=== PATIENT | female | born 1985 | race Caucasian/White ===

== ENCOUNTER 2017-05-11 10:32 | Emergency (ER) | payer SELFPAY ==
[~2017-05-11] VITALS: Ht 162.6 cm; Wt 90.0 kg
[~2017-05-11 10:32] MED LIST: IBUP600 PO; PERC5TAB12 PO; PERI8.6T PO; PREN0.01 PO
[2017-05-11 11:09] VITALS: BP 148/98; PULSE 98; RESP 18; TEMP 98.6; O2SAT 98
--- NOTE | 2017-05-11 11:25 | PD ---
HPI Chief Complaint: General Weakness Time Seen by Provider: 11:25 Travel History International Travel<30 days: No Contact w/Intl Traveler<30days: No Traveled to known affect area: No History of Present Illness HPI 32-year-old female came to the emergency room brought by her with history of feeling weak and dizzy for past 2 days. An says that she feels like her blood sugar is going down. She starts seeing spots in front of her eyes with tunnel vision and ringing in her ears. She started getting very shaky and sweaty. At this point if she eats something she feels better. She has checked her blood sugar to her [id number]'s glucometer and the lowest sugar has been is in the 80s. However she has checked after she has eaten something. Currently she does not appear to be in any significant distress. Vital signs are stable. Patient says that she is trying to do dieting to lose weight. She used to eat a lot of sugar and carbohydrates before now she is trying to cut off everything. No history of vomiting or diarrhea. No history of fever or chills. She said there could be a chance she could be . [facility] Past Medical History Narrative Medical List of her past medical, surgical, social and family history is reviewed from the nursing note. Medical other: Yes ("HYPOGLYCEMIA") Influenza Vaccination: No ?: Not Past Surgical History Section: Yes Social History Alcohol Use: Yes ("RARELY") Tobacco Use: No Substance Use: No Allergies-Medications (Allergen,Severity, Reaction): Coded Allergies: No Known Allergies (Unverified Adverse Reaction, Unknown, 05/11/17) Comments No known drug allergies. Reported Meds & Prescriptions Reported Meds & Active Scripts Active No Active Prescriptions or Reported Medications Narrative Medication List of her home medications reviewed from the nursing note. Review of Systems Except as stated in HPI: all other systems reviewed are Neg Physical Exam Narrative GENERAL: Awake, alert, no obvious distress SKIN: Focused skin assessment warm/dry. HEAD: Atraumatic. Normocephalic. EYES: Pupils equal and round. No scleral icterus. No injection or drainage. ENT: No nasal bleeding or discharge. Mucous membranes pink and moist. NECK: Trachea midline. No JVD. CARDIOVASCULAR: Regular rate and rhythm. No murmur appreciated. RESPIRATORY: No accessory muscle use. Clear to auscultation. Breath sounds equal bilaterally. GASTROINTESTINAL: Abdomen soft, non-tender, nondistended. Hepatic and splenic margins not palpable. MUSCULOSKELETAL: No obvious deformities. No clubbing. No cyanosis. No edema. NEUROLOGICAL: Awake and alert. No obvious cranial nerve deficits. Motor grossly within normal limits. Normal speech. PSYCHIATRIC: Appropriate mood and affect; insight and judgment normal. Data Data Last Documented VS Vital Signs Date Time Temp Pulse Resp B/P (MAP) Pulse Ox O2 Delivery O2 Flow Rate FiO2 05/11/17 12:00 89 18 140/78 (98) 98 Room Air 05/11/17 11:09 98.6 Orders Orders Complete Blood Count With Diff (05/11/17 11:32) Basic Metabolic Panel (Bmp) (05/11/17 11:32) Urinalysis - C+S If Indicated (05/11/17 11:32) Ed Urine Pregnancytest Poc (05/11/17 11:32) Ed Discharge Order (05/11/17 12:27) Labs Laboratory Tests Test 05/11/17 11:40 05/11/17 11:43 Urine Collection Type CLEAN CATCH Urine Color STRAW Urine Turbidity SLIGHT Urine pH 6.0 Urine Specific [place] 1.010 Urine Protein NEG mg/dL Urine Glucose (UA) NEG mg/dL Urine Ketones NEG mg/dL Urine Occult Blood TRACE Urine Nitrite NEG Urine Bilirubin NEG Urine Leukocyte Esterase NEG Urine RBC 0-3 /hpf Urine Squamous Epithelial Cells 0-5 /hpf Urine Amorphous Sediment FEW Microscopic Urinalysis Comment CULT NOT INDICATED Urine Collection Time 1140 White Blood Count 8.0 TH/MM3 Red Blood Count 5.20 MIL/MM3 Hemoglobin 14.2 GM/DL Hematocrit 43.8 % Mean Corpuscular Volume 84.2 FL Mean Corpuscular Hemoglobin 27.3 PG Mean Corpuscular Hemoglobin Concent 32.4 % Red Cell Distribution Width 12.0 % Platelet Count 267 TH/MM3 Mean Platelet Volume 8.7 FL Neutrophils (%) (Auto) 81.3 % Lymphocytes (%) (Auto) 13.8 % Monocytes (%) (Auto) 3.8 % Eosinophils (%) (Auto) 0.2 % Basophils (%) (Auto) 0.9 % Neutrophils # (Auto) 6.5 TH/MM3 Lymphocytes # (Auto) 1.1 TH/MM3 Monocytes # (Auto) 0.3 TH/MM3 Eosinophils # (Auto) 0.0 TH/MM3 Basophils # (Auto) 0.1 TH/MM3 CBC Comment DIFF FINAL Differential Comment Blood Urea Nitrogen 15 MG/DL Creatinine 0.86 MG/DL Random Glucose 128 MG/DL Calcium Level 8.6 MG/DL Sodium Level 139 MEQ/L Potassium Level 3.9 MEQ/L Chloride Level 105 MEQ/L Carbon Dioxide Level 28.3 MEQ/L Anion Gap 6 MEQ/L Estimat Glomerular Filtration Rate 76 ML/MIN MDM Medical Decision Making Medical Screen Exam Complete: Yes Emergency Medical Condition: Yes Medical Record Reviewed: Yes Differential Diagnosis Hypoglycemia, electrolyte abnormalities, dehydration Narrative Course 12:34 PM the test results are done and within normal limits. I spoke to the patient that if she was consuming a lot of sugar prior to going on diet this could be some withdrawal hyperglycemia. In any case if the blood test results are within normal limit there is nothing else to pursue in the emergency room at this point. I recommended her to get a primary care and that further workup to primary care or dye operator. Patient will be discharged home. She's not . Procedures EKG Prior to Arrival: No Diagnosis Primary Impression: Dizziness and giddiness Referrals: Primary Care Physician Additional Instructions: Try not to completely cut off carbohydrate from your diet. He can slowly wean yourself off carbohydrate. You should not find a primary care physician who can order further workup if the symptoms continue or refer you to an dye operator. Med/Other Pt SpecificInfo: No Change to Meds Scripts No Active Prescriptions or Reported Meds Disposition: 01 DISCHARGE HOME Condition: Stable Osbaldo Patterson MD May 11, 2017 11:25
[2017-05-11 11:53] LABS: BILIRUBIN, URINE NEG (NEG); BLOOD, URINE TRACE (NEG); GLUCOSE,URINE NEG (NEG); KETONE, URINE NEG (NEG); NITRITE,URINE NEG (NEG); URINE LEUKOCYTE ESTERASE NEG (NEG)
[2017-05-11 11:54] LABS: AUTOMATED NEUTROPHIL # 6.5 TH/MM3 (1.8-7.7); BASOPHIL # 0.1 TH/MM3 (0-0.2); BASOPHIL % 0.9 % (0.0-2.0); EOSINOPHIL % 0.2 % (0.0-4.0); HEMATOCRIT 43.8 % (35.0-46.0); HEMOGLOBIN 14.2 GM/DL (11.6-15.3); LYMPH % 13.8 % (9.0-44.0); LYMPHOCYTE # 1.1 TH/MM3 (1.0-4.8); MEAN CELL VOLUME 84.2 FL (80.0-100.0); MEAN CORPUSCULAR HEMOGLOBIN 27.3 PG (27.0-34.0); MEAN CORPUSCULAR HGB CONC 32.4 % (32.0-36.0); MEAN PLATELET VOLUME 8.7 FL (7.0-11.0); MONO % 3.8 % (0.0-8.0); MONOCYTE # 0.3 TH/MM3 (0-0.9); NEUT % 81.3 % (16.0-70.0); PLATELET COUNT 267 TH/MM3 (150-450)
[2017-05-11 12:00] VITALS: BP 140/78; PULSE 89; RESP 18; O2SAT 98
[2017-05-11 12:04] LABS: CALCIUM 8.6 MG/DL (8.5-10.1)
[2017-05-11 12:05] LABS: BICARBONATE 28.3 MEQ/L (21.0-32.0)
[2017-05-11 12:08] LABS: CREATININE 0.86 MG/DL (0.50-1.00)
[2017-05-11 12:13] LABS: AMORPHOUS SEDIMENT, URINE FEW; RBC, URINE 0-3 /hpf (0-3); SQUAMOUS EPITHELIAL CELL URINE 0-5 /hpf (0-5); URINE COLOR STRAW (YELLW/STRAW)
== END 2017-05-11 12:39 | disposition home or self-care (01) ==
LOC: PHED 10:32
DX: R42 Dizziness and giddiness (principal); E16.2 Hypoglycemia, unspecified
CPT/HCPCS: 80048; 81001; 84703; 85025; 99283